=== PATIENT | female | born 1960 | race Caucasian/White ===

== ENCOUNTER 2017-02-22 14:39 | Observation (INO) | payer BC, OTHER ==
--- NOTE | 2017-02-22 14:58 | PDOC ---
Rapid Medical Evaluation Time Seen by Provider: 02/22/17 14:50 Medical Evaluation: Allergies Allergy/AdvReac Type Severity Reaction Status Date / Time No Known Drug Allergies Allergy Verified 01/04/15 07:28 02/22/17 14:50 Pt presents to the ED: right mid back numbness x 4 days, has non-affiliated neurologist for MS Pt on brief exam: ambulatory, 200/104 ( hx of htn) on no meds. other vss Pt ordered for: ekg, labs, ua, Pt to proceed to the ED Discharge Disposition - Diagnosis Thoracic back pain - Referrals - Patient Instructions - Post Discharge Activity
[2017-02-22 15:20] LABS: HEMATOCRIT 40.6 % (32.4-45.2); HEMOGLOBIN 12.7 GM/dL (10.7-15.3); LYMPH % 32.7 % (8-40); MCH 22.4 pg (25.7-33.7); MCHC 31.3 g/dl (32.0-36.0); MEAN CELL VOLUME 71.7 fl (80-96); MEAN PLT VOLUME 7.8 fl (7.5-11.1); NEUT % 56.3 % (42.8-82.8); PLATELET COUNT 314 K/MM3 (134-434); RBC 5.66 M/mm3 (3.60-5.2); RDW 17.8 % (11.6-15.6); WHITE BLOOD COUNT 8.4 K/mm3 (4.0-10.0)
[2017-02-22 15:38] LABS: INR 1.09 (0.82-1.09); PROTHROMBIN TIME (PATIENT) 12.3 SEC (9.98-11.88)
[2017-02-22 15:49] LABS: ALBUMIN 3.7 g/dl (3.4-5.0); ANION GAP 10 (8-16); BLOOD UREA NITROGEN 15 mg/dL (7-18); CALCIUM 8.9 mg/dL (8.5-10.1); CHLORIDE 102 mmol/L (98-107); CO2 29 mmol/L (21-32); CREATININE 0.8 mg/dL (0.55-1.02); GLUCOSE,RANDOM 86 mg/dL (74-106); SGOT/AST 19 U/L (15-37); SODIUM 141 mmol/L (136-145); TOT PROT 7.9 g/dl (6.4-8.2)
[2017-02-22 15:57] LABS: ALK PHOS 159 U/L (45-117); BILIRUBIN,TOTAL 0.5 mg/dL (0.2-1.0); SGPT/ALT 24 U/L (12-78)
[2017-02-22] MEDS ORDERED: PANTOPRAZOLE SODIUM 40 MG VIAL IVPUSH ONE (16:08)
[2017-02-22] MEDS ORDERED: POTASSIUM CHLORIDE TABS 20 MEQ TABLET.ER (FP) PO ONE ×2 (16:13→16:59)
--- NOTE | 2017-02-22 16:16 | PDOC ---
History of Present Illness - General History Source: Patient Exam Limitations: No Limitations <Mario Mullen - Last Filed: 02/22/17 16:31> - General History Source: Patient Exam Limitations: No Limitations - History of Present Illness Initial Comments: 02/22/17 17:01 The patient is a 56 year old female, with a significant past medical history of HTN, MS (diagnosed 20 years ago) who presents to the emergency department with R mid back numbness for the past 4 days. Patient notes constipation that began 4 days ago and took Colace. Patient developed rash to the R mid back area which progressed to numbness. Patient reports numbness is similar to her MS symptoms. Patient presents to the ED for further evaluation. Patient denies chest pain, headache or dizziness. Patient denies fever, chills, abdominal pain, nausea, vomit, diarrhea or constipation. Patient denies dysuria , frequency, urgency or hematuria. Patient denies sick contacts or recent travel. Allergies: NKA Past surgical history: C section, cholecystectomy Social history: None PCP: Dr. Tam <Krys Rashid - Last Filed: 02/22/17 17:02> - General Chief Complaint: CVA/TIA Stated Complaint: RIGHT SIDE PAIN Time Seen by Provider: 02/22/17 14:50 Past History - Past Medical History Anemia: No Asthma: No Cancer: No Cardiac Disorders: No CVA: No COPD: No CHF: No Dementia: No Diabetes: No GI Disorders: No Disorders: No HTN: Yes Hypercholesterolemia: No Liver Disease: No Seizures: No Thyroid Disease: No Other medical history: MS. - Surgical History Abdominal Surgery: Yes Appendectomy: No Cardiac Surgery: No Cholecystectomy: Yes Lung Surgery: No Neurologic Surgery: No Orthopedic Surgery: No - Suicide/Smoking/Psychosocial Hx Smoking History: Never smoked Have you smoked in the past 12 months: No Hx Alcohol Use: No Drug/Substance Use Hx: No Substance Use Type: None Hx Substance Use Treatment: No <Mario Mullen - Last Filed: 02/22/17 16:31> <Krys Rashid - Last Filed: 02/22/17 17:02> - Past Medical History Allergies/Adverse Reactions: Allergies Allergy/AdvReac Type Severity Reaction Status Date / Time No Known Drug Allergies Allergy Verified 02/22/17 14:50 Home Medications: Ambulatory Orders NK [No Known Home Medication] 02/22/17 Review of Systems - Review of Systems Able to Perform ROS?: Yes Comments:: 02/22/17 17:01 GENERAL/CONSTITUTIONAL: No fever or chills. No weakness. HEAD, EYES, EARS, NOSE AND THROAT: No change in vision. No ear pain or discharge. No sore throat. CARDIOVASCULAR: No chest pain or shortness of breath. RESPIRATORY: No cough, wheezing, or hemoptysis. GASTROINTESTINAL: No nausea, vomiting, diarrhea or constipation. GENITOURINARY: No dysuria, frequency, or change in urination. MUSCULOSKELETAL: No joint or muscle swelling or pain. No neck or back pain. +R mid back numbness. SKIN: No rash NEUROLOGIC: No headache, vertigo, loss of consciousness, or change in strength/ sensation. ENDOCRINE: No increased thirst. No abnormal weight change. HEMATOLOGIC/LYMPHATIC: No anemia, easy bleeding, or history of blood clots. ALLERGIC/IMMUNOLOGIC: No hives or skin allergy. <Krys Rashid - Last Filed: 02/22/17 17:02> *Physical Exam - Vital Signs Last Vital Signs Temp Pulse Resp BP Pulse Ox 98.4 F 101 H 19 204/104 97 02/22/17 14:50 02/22/17 14:50 02/22/17 14:50 02/22/17 14:50 02/22/17 14:50 - Physical Exam Comments: 02/22/17 16:13 NEURO: CN II-XII intact 5/5 strength upper and lower extremities. Decreased sensation over the right mid flank compared to the left. No pronator drift Speech normal Finger to nose normal Rapid alternating normal <Mario Mullen - Last Filed: 02/22/17 16:31> - Vital Signs Last Vital Signs Temp Pulse Resp BP Pulse Ox 98.4 F 101 H 19 204/104 97 02/22/17 14:50 02/22/17 14:50 02/22/17 14:50 02/22/17 14:50 02/22/17 14:50 - Physical Exam Comments: 02/22/17 17:01 GENERAL: Awake, alert, and fully oriented, in no acute distress HEAD: No signs of trauma EYES: PERRLA, EOMI, sclera anicteric, conjunctiva clear ENT: Auricles normal inspection, hearing grossly normal, nares patent, oropharynx clear without exudates. Moist mucosa NECK: Normal ROM, supple, no lymphadenopathy, JVD, or masses LUNGS: Breath sounds equal, clear to auscultation bilaterally. No wheezes, and no crackles HEART: Regular rate and rhythm, normal S1 and S2, no murmurs, rubs or gallops ABDOMEN: Soft, nontender, normoactive bowel sounds. No guarding, no rebound. No masses EXTREMITIES: Normal range of motion, no edema. No clubbing or cyanosis. No cords, erythema, or tenderness. SKIN: +No rash or lesion overlying the R flank. Warm, Dry, normal turgor, no rashes or lesions noted. <Krys Rashid - Last Filed: 02/22/17 17:02> Heart Score/ECG Review #1 ECG reviewed & interpreted by me at: 16:25 02/22/17 16:31 NSR 88, QTC 496 msec, no std/katrin <Mario Mullen - Last Filed: 02/22/17 16:31> ED Treatment Course - LABORATORY CBC & Chemistry Diagram: 02/22/17 15:10 02/22/17 15:10 - ADDITIONAL ORDERS Additional order review: Laboratory Results 02/22/17 02/22/17 15:10 15:10 PT with INR 12.30 H INR 1.09 Sodium 141 Potassium 3.0 L Chloride 102 Carbon Dioxide 29 D Anion Gap 10 BUN 15 D Creatinine 0.8 D Creat Clearance w eGFR > 60 Random Glucose 86 D Calcium 8.9 Total Bilirubin 0.5 D AST 19 ALT 24 Alkaline Phosphatase 159 H D Total Protein 7.9 Albumin 3.7 02/22/17 15:10 RBC 5.66 H MCV 71.7 L MCHC 31.3 L RDW 17.8 H MPV 7.8 Neutrophils % 56.3 D Lymphocytes % 32.7 D Monocytes % 8.0 D Eosinophils % 2.0 D Basophils % 1.0 - RADIOLOGY Radiology Studies Ordered: Category Date Time Status BRAIN MRI W&W/O CONTRAST [MRI] Stat MRI 02/22/17 16:13 Ordered <Mario Mullen - Last Filed: 02/22/17 16:31> - LABORATORY CBC & Chemistry Diagram: 02/22/17 15:10 02/22/17 15:10 - ADDITIONAL ORDERS Additional order review: Laboratory Results 02/22/17 02/22/17 15:10 15:10 PT with INR 12.30 H INR 1.09 Sodium 141 Potassium 3.0 L Chloride 102 Carbon Dioxide 29 D Anion Gap 10 BUN 15 D Creatinine 0.8 D Creat Clearance w eGFR > 60 Random Glucose 86 D Calcium 8.9 Total Bilirubin 0.5 D AST 19 ALT 24 Alkaline Phosphatase 159 H D Total Protein 7.9 Albumin 3.7 02/22/17 15:10 RBC 5.66 H MCV 71.7 L MCHC 31.3 L RDW 17.8 H MPV 7.8 Neutrophils % 56.3 D Lymphocytes % 32.7 D Monocytes % 8.0 D Eosinophils % 2.0 D Basophils % 1.0 <Krys Rashid - Last Filed: 02/22/17 17:02> Medical Decision Making - Medical Decision Making 02/22/17 16:14 A portion of this note was documented by scribe services under my direction. I have reviewed the details of the note, within reason, and agree with the documentation with the following case summary and management plan written by me. Patient treated in the ED. Nursing notes are reviewed and incorporated into the medical decision-making. Vital signs reviewed. Peripheral IV access obtained by the nurse, laboratory studies are drawn and sent, reviewed and interpreted by myself. Vital Signs Temp Pulse Resp BP Pulse Ox 98.4 F 101 H 19 204/104 97 02/22/17 14:50 02/22/17 14:50 02/22/17 14:50 02/22/17 14:50 02/22/17 14:50 56-year-old female with history of hypertension and multiple sclerosis, slowly progressive, not on medications presents with numbness in the right flank progressive worsening over the week. Patient initially reported paresthesias and right numbness. Denies other neurological deficits. Denies rash or fevers. I suspect the patient is having a multiple sclerosis flare. I had consulted Dr. Gamez. I initiated 500 mg BID solu-medrol and ordered MRI brain with and without. Case discussed with Dr. Malloy who accepted the patient to med/surg admission. Case discussed in detail with admitting physician including history, physical exam and ancillary studies. Admitting physician has assumed care for the patient, will follow all pending diagnostics and will complete the evaluation and treatment. <Mario Mullen - Last Filed: 02/22/17 16:31> - Medical Decision Making 02/22/17 17:01 3:52 - Call placed to Neurology content curator. Discussed case with Dr. Gamez <Krys Rashid - Last Filed: 02/22/17 17:02> *DC/Admit/Observation/Transfer - Discharge Dispostion Admit: Yes <Mario Mullen - Last Filed: 02/22/17 16:31> - Attestations Scribe Attestion: 02/22/17 17:02 Documentation prepared by Krys Rashid, acting as medical administrator for Mario Mullen MD <Krys Rashid - Last Filed: 02/22/17 17:02> Diagnosis at time of Disposition: Numbness, Multiple sclerosis - Discharge Dispostion Condition at time of disposition: Stable
[2017-02-22] MEDS ORDERED: PANTOPRAZOLE SODIUM 40 MG/100 ML BAG IVPB ONE (16:59)
--- NOTE | 2017-02-22 19:21 | HP ---
Admitting History and Physical - Primary Care Physician PCP: Chalino Malloy - Admission History of Present Illness: 56 year old female, with a significant past medical history of HTN, MS ( diagnosed 20 years ago) who presents to the emergency department with R mid back numbness for the past 4 days. Patient notes constipation that began 4 days ago and took Colace. Patient developed rash to the R mid back area which progressed to numbness. Patient reports numbness is similar to her MS symptoms. Patient presents to the ED for further evaluation. 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 Denies gross motor deficits) Cardiovascular: Yes: HTN Heme/Onc: Yes: Anemia (neg egd and colon [address] 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 Son had no medical issues at present) Physical Examination Vital Signs: Vital Signs Temperature 98.4 F 02/22/17 14:50 Pulse Rate 101 H 02/22/17 14:50 Respiratory Rate 19 02/22/17 14:50 Blood Pressure 204/104 02/22/17 14:50 O2 Sat by Pulse Oximetry (%) 97 02/22/17 14:50 Constitutional: Yes: No Distress HENT: Yes: Atraumatic Neck: Yes: Supple Cardiovascular: Yes: Regular Rate and Rhythm Respiratory: Yes: CTA Bilaterally Gastrointestinal: Yes: Normal Bowel Sounds Musculoskeletal: Yes: WNL Extremities: Yes: WNL Edema: No Peripheral Pulses WNL: Yes Neurological: Yes: Alert, Oriented ...Motor Strength: WNL Labs: CBC, BMP 02/22/17 15:10 02/22/17 15:10 Problem List - Problems (1) Multiple sclerosis Assessment/Plan: could be exacerbation neuroeval on iv steroids Code(s): G35 - MULTIPLE SCLEROSIS (2) Numbness Assessment/Plan: monitor no motor weakness feels numb on face and R side of trunk and back Code(s): R20.0 - ANESTHESIA OF SKIN Assessment/Plan Laboratory Tests 02/22/17 02/22/17 02/22/17 15:10 15:10 15:10 WBC 8.4 RBC 5.66 H Hgb 12.7 D Hct 40.6 MCV 71.7 L MCH 22.4 L MCHC 31.3 L RDW 17.8 H Plt Count 314 MPV 7.8 Neutrophils % 56.3 D Lymphocytes % 32.7 D Monocytes % 8.0 D Eosinophils % 2.0 D Basophils % 1.0 PT with INR 12.30 H INR 1.09 Sodium 141 Potassium 3.0 L Chloride 102 Carbon Dioxide 29 D Anion Gap 10 BUN 15 D Creatinine 0.8 D Creat Clearance w eGFR > 60 Random Glucose 86 D Calcium 8.9 Total Bilirubin 0.5 D AST 19 ALT 24 Alkaline Phosphatase 159 H D Total Protein 7.9 Albumin 3.7 Active Medications Generic Name Dose Route Start Last Admin Trade Name Freq PRN Reason Stop Dose Admin Methylprednisolone Sodium Succinate 500 mg 02/22/17 22:00 Solu-Medrol - IVPB BID ROSE
[2017-02-22] MEDS: methylPREDNISolone NA SUCC 125 MG/2 ML VIAL IVPB SCH (23:13)
[2017-02-23 09:48] LABS: URINE APPEARANCE CLEAR; URINE BILIRUBIN NEGATIVE (NEGATIVE); URINE BLOOD NEGATIVE (NEGATIVE); URINE COLOR YELLOW; URINE GLUCOSE (UA) 1+ (NEGATIVE); URINE KETONE 1+ (NEGATIVE); URINE LEUK ESTERASE NEGATIVE (NEGATIVE); URINE NITRITE NEGATIVE (NEGATIVE); URINE UROBILINOGEN NEGATIVE mg/dL (0.2-1.0)
[2017-02-23 09:50] LABS: URINE PROTEIN 2+ (NEGATIVE)
[2017-02-23 09:56] LABS: EPI CELLS FEW /HPF (FEW); URINE MUCUS RARE
[2017-02-23] MEDS: methylPREDNISolone NA SUCC 125 MG/2 ML VIAL IVPB SCH ×2 (11:50→21:28)
--- NOTE | 2017-02-23 15:12 | EKG ---
Test Reason : Blood Pressure : / mmHG Vent. Rate : 088 BPM Atrial Rate : 088 BPM P-R Int : 162 ms QRS Dur : 110 ms QT Int : 410 ms P-R-T Axes : 047 035 037 degrees QTc Int : 496 ms NORMAL SINUS RHYTHM PROLONGED QT ABNORMAL ECG WHEN COMPARED WITH ECG OF 02-JAN-2015 05:31, NO SIGNIFICANT CHANGE WAS FOUND Confirmed by Raman Moon MD ([id number]) on 02/23/2017 3:12:35 PM Referred By: Confirmed By:Raman Moon MD
--- NOTE | 2017-02-23 17:11 | CON.NEURO ---
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 Son had no medical issues at present) Physical Exam-Neuro Vital Signs: Vital Signs Temperature 98.6 F 02/23/17 16:22 Pulse Rate 104 H 02/23/17 16:22 Respiratory Rate 18 02/23/17 16:22 Blood Pressure 171/80 02/23/17 16:22 O2 Sat by Pulse Oximetry (%) 96 02/22/17 21:09 Labs: CBC, BMP 02/22/17 15:10 02/22/17 15:10 INR, PTT INR 1.09 (0.82-1.09) 02/22/17 15:10 Imaging - Results MRI: Report Reviewed Assessment/Plan cc Right waist numbness HPI 56 year old female , history of htn and ms . She diagnoed MS 20 years ago. She see Dr Devin Rodriguez at [facility]. She has been having right flank area numbness. She denies any weakness or bowel or bladder symptoms. She denies any symptoms on left isde. She has been started on steroid 500 mg iv bid for three days. PMH as above. 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 Son had no medical issues at present) Neurological Examination Alert oriented x 3, speech is normal , follow command, walking in hallway CN all intact, eomi no face asymmetry moving all extemity able to walk on toes , heel and do squat sensation i sdiminished on right side in t9-L1 Distribution Reflex are hyper reflexia in lower extremity Assessment- Acute exacerbation of MS , Symptoms are only sensory and improving, no evidence of motor weakness or bowel or bladder involvement. Plan suggest to do mri of t spine with contrast - continue steroid solumedrol 500 mg bid for five days - She can be discharged after three days of steroid and no need to taper she has benign MS and not being treated with disease modifying agents. Thanking you so much Dago Gamez
--- NOTE | 2017-02-23 20:11 | PN ---
Progress Note, Physician - Current Medication List Current Medications: Active Medications Methylprednisolone Sodium Succinate (Solu-Medrol -) 500 mg IVPB BID ROSE Last Admin: 02/23/17 11:50 Dose: 500 mg - Objective Vital Signs: Vital Signs Temperature 98.6 F 02/23/17 16:22 Pulse Rate 104 H 02/23/17 16:22 Respiratory Rate 18 02/23/17 16:22 Blood Pressure 171/80 02/23/17 16:22 O2 Sat by Pulse Oximetry (%) 96 02/22/17 21:09 Constitutional: Yes: No Distress HENT: Yes: Atraumatic Neck: Yes: Supple Cardiovascular: Yes: Regular Rate and Rhythm Respiratory: Yes: CTA Bilaterally Gastrointestinal: Yes: Normal Bowel Sounds Extremities: Yes: WNL Edema: No Peripheral Pulses WNL: Yes Neurological: Yes: Alert, Oriented Labs: CBC, BMP 02/22/17 15:10 02/22/17 15:10 INR, PTT INR 1.09 (0.82-1.09) 02/22/17 15:10 Problem List - Problems (1) Multiple sclerosis Assessment/Plan: could be exacerbation neuroeval...done on iv steroids Code(s): G35 - MULTIPLE SCLEROSIS (2) Numbness Assessment/Plan: monitor no motor weakness feels numb on face and R side of trunk and back Code(s): R20.0 - ANESTHESIA OF SKIN (3) HTN (hypertension) Assessment/Plan: has a h/o htn not on any meds for 2 years will start her on norvasc do echo cardiology consult Code(s): I10 - ESSENTIAL (PRIMARY) HYPERTENSION
[2017-02-23] MEDS: amLODIPine BESYLATE 10 MG TABLET (FP) PO SCH (21:28)
--- NOTE | 2017-02-24 08:56 | PN ---
Progress Note (short form) - Note Progress Note: 56 year old female , history of htn and ms . She diagnoed MS 20 years ago. She see Dr Devin Rodriguez at [facility]. She has been having right flank area numbness. She denies any weakness or bowel or bladder symptoms. She denies any symptoms on left isde. She has been started on steroid 500 mg iv bid for three days. She is feeling anxious and have difficulty sleeping last night. Patient requesting if she can see psychiastrist. Neurological Examination Alert oriented x 3, speech is normal , follow command, walking in hallway CN all intact, eomi no face asymmetry moving all extemity able to walk on toes , heel and do squat sensation i sdiminished on right side in t9-L1 Distribution Reflex are hyper reflexia in lower extremity Assessment- Acute exacerbation of MS , Symptoms are only sensory and improving, no evidence of motor weakness or bowel or bladder involvement. She describes she do get facial numbness secondary to anxiety, and may not be related to MS Plan Waiting for MRI OF T Spine - continue steroid solumedrol 500 mg bid for five days - She can be discharged after three days of steroid and no need to taper - She can follow with Neurologist as outpatient. Thanking you so much Dago Gamez
[2017-02-24] MEDS: methylPREDNISolone NA SUCC 125 MG/2 ML VIAL IVPB SCH ×2 (09:53→21:00)
[2017-02-24] MEDS: amLODIPine BESYLATE 10 MG TABLET (FP) PO SCH (09:53)
--- NOTE | 2017-02-24 11:21 | CON.PSY ---
Psychiatry Consult Chief Complaint: I am depressed, anxious and fearful of what's coming next with my MS. Also has accompanied Physical pain. Symptoms: reports: Depressed Mood, Decreased Energy, Anxiety - Previous Psychiatric Treatment Outpatient: None Inpatient: None - Previous Substance Abuse Treatment Outpatient: None, More than 6 mos ago - Reason for Previous Treatment Reason for Previous Treatment: Major Depression, Anxiety or Panic Disorder - Current Medications Current Medications: Active Medications Amlodipine Besylate (Norvasc -) 10 mg PO DAILY [facility] Last Admin: 02/24/17 09:53 Dose: 10 mg Methylprednisolone Sodium Succinate (Solu-Medrol -) 500 mg IVPB BID [facility] Last Admin: 02/24/17 09:53 Dose: 500 mg - Allergies Allergies: Allergies Allergy/AdvReac Type Severity Reaction Status Date / Time No Known Drug Allergies Allergy Verified 02/22/17 14:50 - Current Living Status Usual Living Arrangement: With Significant Other - Current Mental Status Evaluation Appearance: Well Groomed Attitude: Cooperative - Affect Affect: Constrictive Appropriateness: Appropriate to Content - Mood Mood: Depressed, Anxious - Speech/Language Expressive: Coherent - Psychomotor Activity Psychomotor Activity: Normal - Thought Process Thought Process: Intact - Thought Content Hallucinations: Absent Delusions: Absent - Self Perception Self Perception: No Impairment - Cognition Attention: Alert Orientation: Time Memory, Immediate Recall: Intact Memory, Short Term: 3/3 Memory, Remote with Promptin/3 - Concentration Serial Sevens Intact: Yes Simple Calculations Intact: Yes - Abstraction Proverb Interpretation: Intact Judgement: Intact - Insight Insight: Intact - Impulse Control Impulse Control: Good Control - Suicidal Ideation Suicidal Ideation: No - Homicidal Ideation Homicidal Ideation: No Assessment/Plan 1) Start CYmbalta 30mg po od for depression, anxiety and physical pain.
--- NOTE | 2017-02-24 15:16 | CON.CARD ---
Consult Consult Specialty:: Cardiology Referred by:: Chalino Malloy MD Reason for Consultation:: Hypertension - History of Present Illness Chief Complaint: Weakness History of Present Illness: 56 year old female with history of HTN and MS diagnosed 20 years ago. [facility] She was admitted with right flank area numbness. She denies any weakness or bowel or bladder symptoms. She has been started on steroid 500 mg iv bid for three days for MS flare with improvement of sensory deficits. She denies chest pain, dyspnea, near or true syncope, palpitations, orthopnea, PND or LE edema. Noted to be hypertensive, started on Norvasc in AM. 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 Son had no medical issues at present) Review of Systems - Review of Systems Neurological: reports: Numbness Vital Signs: Vital Signs Temperature 98.0 F 02/24/17 14:58 Pulse Rate 94 H 02/24/17 14:58 Respiratory Rate 18 02/24/17 14:58 Blood Pressure 162/91 02/24/17 14:58 O2 Sat by Pulse Oximetry (%) 96 02/24/17 10:00 Constitutional: Yes: No Distress, Calm Neck: Yes: Supple Respiratory: Yes: Regular, Diminished Gastrointestinal: Yes: Normal Bowel Sounds Cardiovascular: Yes: Regular Rate and Rhythm JVD: No Carotid Bruit: No Heart Sounds: Yes: S1, S2 Edema: No - Other Data Labs, Other Data: CBC, BMP 02/22/17 15:10 02/22/17 15:10 INR, PTT INR 1.09 (0.82-1.09) 02/22/17 15:10 NSR @ 88 Imaging - Results Chest X-ray: Report Reviewed (NAD) MRI: Report Reviewed ([id number] sclerosis) Problem List - Problems (1) HTN (hypertension) Code(s): I10 - ESSENTIAL (PRIMARY) HYPERTENSION Qualifiers: Hypertension type: unspecified Qualified Code(s): I10 - Essential (primary ) hypertension (2) Multiple sclerosis Code(s): G35 - MULTIPLE SCLEROSIS (3) Depression Code(s): F32.9 - MAJOR DEPRESSIVE DISORDER, SINGLE EPISODE, UNSPECIFIED Qualifiers: Depression Type: unspecified Qualified Code(s): F32.9 - Major depressive disorder, single episode, unspecified Assessment/Plan 02/24/2017 Echo: Normal LV size and fxn, tr MR 1. Acute exacerbation of MS , sensory not motor weakness and improving 2. HTN exacerbated by IV steroids 3. Depression, anxiety d/o P:1. IV steroids with GI protection 2. Started Norvasc 10 qd with monitor clinical response 3. Thank you for consultative opportunity
--- NOTE | 2017-02-24 17:42 | PN ---
Progress Note, Physician - Current Medication List Current Medications: Active Medications Amlodipine Besylate (Norvasc -) 10 mg PO DAILY [facility] Last Admin: 02/24/17 09:53 Dose: 10 mg Duloxetine HCl (Cymbalta -) 30 mg PO DAILY [facility] Methylprednisolone Sodium Succinate (Solu-Medrol -) 500 mg IVPB BID [facility] Last Admin: 02/24/17 09:53 Dose: 500 mg - Objective Vital Signs: Vital Signs Temperature 98.0 F 02/24/17 14:58 Pulse Rate 94 H 02/24/17 14:58 Respiratory Rate 18 02/24/17 14:58 Blood Pressure 162/91 02/24/17 14:58 O2 Sat by Pulse Oximetry (%) 96 02/24/17 10:00 Constitutional: Yes: No Distress HENT: Yes: Atraumatic Neck: Yes: Supple Cardiovascular: Yes: Regular Rate and Rhythm Respiratory: Yes: CTA Bilaterally Gastrointestinal: Yes: Normal Bowel Sounds Extremities: Yes: WNL Neurological: Yes: Alert, Oriented Labs: CBC, BMP 02/22/17 15:10 02/22/17 15:10 INR, PTT INR 1.09 (0.82-1.09) 02/22/17 15:10 Problem List - Problems (1) Multiple sclerosis Assessment/Plan: could be exacerbation neuroeval...done on iv steroids Code(s): G35 - MULTIPLE SCLEROSIS (2) Numbness Assessment/Plan: resolving Code(s): R20.0 - ANESTHESIA OF SKIN (3) HTN (hypertension) Assessment/Plan: echo done on norvasc Code(s): I10 - ESSENTIAL (PRIMARY) HYPERTENSION Qualifiers: Hypertension type: unspecified Qualified Code(s): I10 - Essential (primary ) hypertension
[2017-02-25] MEDS: amLODIPine BESYLATE 10 MG TABLET (FP) PO SCH (09:29)
[2017-02-25] MEDS: methylPREDNISolone NA SUCC 125 MG/2 ML VIAL IVPB SCH (09:29)
--- NOTE | 2017-02-25 09:54 | PN ---
Progress Note (short form) - Note Progress Note: 56 year old female , history of htn and ms . She diagnoed MS 20 years ago. She see Dr Devin Rodriguez at [facility]. She has been having right flank area numbness. She denies any weakness or bowel or bladder symptoms. She denies any symptoms on left isde. She has been started on steroid 500 mg iv bid for three days. She is feeling anxious and have difficulty sleeping last night. P Patient feeling still same as yesterday but better than when she came to hospital, mri of t spine is pending. Neurological Examination Alert oriented x 3, speech is normal , follow command, walking in hallway CN all intact, eomi no face asymmetry moving all extemity able to walk on toes , heel and do squat sensation i sdiminished on right side in t9-L1 Distribution Reflex are hyper reflexia in lower extremity Assessment- Acute exacerbation of MS , finishing iv solumedrol today. psychiatrist consult appreciated. Tunde- finished steroid today, no need for tapering dose - waiting for t spien mri results - She can be discharged after three days of steroid and no need to taper - She can follow with Neurologist as outpatient. Thanking you so much Dago Gamez
[2017-02-25] MEDS ORDERED: DULoxetine HCL 30 MG CAPSULE.DR (FP) PO SCH (10:00)
--- NOTE | 2017-02-25 11:03 | PN ---
Progress Note, Physician History of Present Illness: Sensory deficits continue to resolve on steroids. She denies chest pain, dyspnea , near or true syncope, palpitations, orthopnea, PND or LE edema. BP control improved on Norvasc. - Current Medication List Current Medications: Active Medications Amlodipine Besylate (Norvasc -) 10 mg PO DAILY [facility] [place] Last Admin: 02/25/17 09:29 Dose: 10 mg Duloxetine HCl (Cymbalta -) 30 mg PO DAILY [facility] [place] Last Admin: 02/25/17 09:29 Dose: 30 mg Methylprednisolone Sodium Succinate (Solu-Medrol -) 500 mg IVPB BID [facility] [place] Last Admin: 02/25/17 09:29 Dose: 500 mg - Objective Vital Signs: Vital Signs Temperature 97.6 F 02/25/17 09:21 Pulse Rate 74 02/25/17 09:21 Respiratory Rate 20 02/25/17 09:21 Blood Pressure 159/89 02/25/17 09:21 O2 Sat by Pulse Oximetry (%) 96 02/25/17 02:00 Constitutional: Yes: No Distress, Calm Neck: Yes: Supple Cardiovascular: Yes: Regular Rate and Rhythm Respiratory: Yes: Regular, CTA Bilaterally Gastrointestinal: Yes: Normal Bowel Sounds, Soft Edema: No Labs: CBC, BMP 02/22/17 15:10 02/22/17 15:10 INR, PTT INR 1.09 (0.82-1.09) 02/22/17 15:10 Problem List - Problems (1) HTN (hypertension) Code(s): I10 - ESSENTIAL (PRIMARY) HYPERTENSION Qualifiers: Hypertension type: unspecified Qualified Code(s): I10 - Essential (primary ) hypertension (2) Multiple sclerosis Code(s): G35 - MULTIPLE SCLEROSIS (3) Depression Code(s): F32.9 - MAJOR DEPRESSIVE DISORDER, SINGLE EPISODE, UNSPECIFIED Qualifiers: Depression Type: unspecified Qualified Code(s): F32.9 - Major depressive disorder, single episode, unspecified Assessment/Plan 02/24/2017 Echo: Normal LV size and fxn, tr MR 1. Acute exacerbation of MS , sensory not motor weakness and improving 2. HTN exacerbated by IV steroids 3. Depression, anxiety d/o P:1. Completing IV steroid course with GI protection 2. F/u t-spine MRI results 3. Continue Norvasc 10 qd with monitor clinical response
[2017-02-25] MEDS ORDERED: POTASSIUM CHLORIDE TABS 20 MEQ TABLET.ER (FP) PO ONE (11:12)
[2017-02-25 17:19] VITALS: BP 141/78; PULSE 92; TEMP 98.1
--- NOTE | 2017-02-25 18:56 | DS ---
Physical Examination Vital Signs: Vital Signs Temperature 98.1 F 02/25/17 17:18 Pulse Rate 92 H 02/25/17 17:18 Respiratory Rate 20 02/25/17 17:18 Blood Pressure 141/78 02/25/17 17:18 O2 Sat by Pulse Oximetry (%) 97 02/25/17 10:00 Constitutional: Yes: No Distress HENT: Yes: Atraumatic Neck: Yes: Supple Cardiovascular: Yes: Regular Rate and Rhythm Respiratory: Yes: CTA Bilaterally Gastrointestinal: Yes: Normal Bowel Sounds Extremities: Yes: WNL Edema: No Peripheral Pulses WNL: Yes Neurological: Yes: Alert, Oriented Labs: CBC, BMP 02/22/17 15:10 02/22/17 15:10 Discharge Summary Reason For Visit: MULTIPLE SCLEROSIS Current Active Problems Depression (Acute) HTN (hypertension) (Acute) Multiple sclerosis (Acute) Numbness (Acute) Condition: Stable - Instructions Referrals: Chalino Malloy MD [Staff Physician] - Gisela Travis MD [Staff Physician] - Miguel Curtis MD [Staff Physician] - - Home Medications Comprehensive Discharge Medication List: Ambulatory Orders Amlodipine Besylate [Norvasc -] 10 mg PO DAILY #30 tablet 02/24/17 Duloxetine HCl [Cymbalta -] 30 mg PO DAILY #30 capsule. 02/24/17 cleared by neurology to be yanelis fine as out pt
== END 2017-02-25 20:01 | disposition home or self-care (01) ==
LOC: JER 14:39 → JERBED 16:16 → INTOOBSV 16:16 → UNDOADMOB 16:16 → JERBED 19:21 → J8W 21:44
PROVIDERS: ADMIT Internal Medicine; ATTEND Internal Medicine
PROC: 3E0333Z Introduction of Anti-inflammatory into Peripheral Vein, Percutaneous Approach (ICD-10-PCS; principal; 2017-02-22)
PROC: 3E033GC Introduction of Other Therapeutic Substance into Peripheral Vein, Percutaneous Approach (ICD-10-PCS; 2017-02-22)
DX: G35 Multiple sclerosis (principal); R20.0 Anesthesia of skin; I10 Essential (primary) hypertension; F32.9 Major depressive disorder, single episode, unspecified
CPT/HCPCS: 36415; 70553-TC; 71045-TC; 72157-TC; 80053; 81003; 81015; 85025; 85610; 93005; 93010; 93306-TC; 97116-GP; 97161-GP; 99284-25; G0378

== ENCOUNTER 2022-11-30 08:54 | Emergency (ER) | payer OTHER, BC ==
[2022-11-30 09:04] VITALS: TEMP 97.7; BMI 40.7
[2022-11-30] MEDS ORDERED: OXYMETAZOLINE 0.05% NASAL SOLUTION 15 ML BOTTLE NS ONE (09:45)
[2022-11-30] MEDS ORDERED: TRANEXAMIC ACID 1000 MG/10 ML VIAL IVPUSH ONE (09:47)
[2022-11-30] MEDS ORDERED: TRANEXAMIC ACID 1000 MG/10 ML VIAL ONE (09:55)
[2022-11-30 16:05] VITALS: BP 145/80; PULSE 73; RESP 16
== END 2022-11-30 16:48 | disposition home or self-care (01) ==
LOC: JER 08:54
PROC: 3E033GC Introduction of Other Therapeutic Substance into Peripheral Vein, Percutaneous Approach (ICD-10-PCS; principal; 2022-11-30)
DX: R04.0 Epistaxis (principal)
CPT/HCPCS: 99284-25